=== PATIENT | female | born 2000 | race Hispanic/Latino ===

== ENCOUNTER 2025-01-15 21:46 | Emergency (ER) | payer BC ==
[~2025-01-15] VITALS: Ht 160 cm; Wt 68.0 kg
--- NOTE | 2025-01-15 21:54 | NUR ---
UA CUP PROVIDED
--- NOTE | 2025-01-15 21:59 | ERN ---
ED Note History of Present Illness Stated Complaint: VAGINAL BLEEDING , 9 WEEKS, Sep MENS Chief Complaint: Vaginal Bleeding Time Seen by MD: 21:57 Dictation: This is a 24-year-old female who presented to the emergency room with complaints of vaginal bleeding in . She stated that she started bleeding in the past 2 days small amounts no large clots. She did not have to change multiple pads. No fever chills or rigors. Vaginal discharge. No frequency burning micturition. No pelvic pain cramping or lower back pain. She was seen at [facility] and her was confirmed and she also stated that an ultrasound was done and she was given pictures of the sac with heart rate. Temperature 99 pulse 62 respirations 18 blood pressure 121/72 with a pulse oximetry of 98% on room air Allergies: Coded Allergies: amoxicillin (Unverified Allergy, Unknown, 01/15/25) Past Medical History Past Medical History: No Pertinent History Surgical History: None Family History: Negative Social History: Negative LMP: Oct 17, 2024 : 1 RN Note Reviewed/Agreed w/PFSH: Yes Review of System Dictation Constitutional: Negative for fever,chills, and weight loss Eyes: Negative for injury, pain,redness, and discharge ENT: Negative for injury,pain or swelling Cardiovascular: Negative for chest pain, palpitations, and edema Respiratory: Negative for shortness of breath, cough, and wheezing, Abdomen/GI: Negative for abdominal pain, nausea, vomiting, diarrhea, and constipation Back: Negative for injury and pain : Negative for injury, bleeding and discharge vaginal bleeding MS/Extremity: Negative for injury and deformity Skin: Negative for rash, and discoloration Neuro: Negative for headache, weakness, numbness, tingling, and seizure Psych: Negative for suicide ideation, homicidal ideation, and hallucinations Initial Vital Sign VS Vital Signs Date Time Temp Pulse Resp B/P (MAP) Pulse Ox O2 Delivery O2 Flow Rate FiO2 01/15/25 21:47 99.0 62 18 121/72 100 Room Air Physical Exam Dictation General: awake, alert, NAD Head/Face: Normocephalic, atraumatic Eyes: PERRL, EOMI, vision at baseline ENT: oral cavity clear, TMs clear, no signs of infection Neck: Trachea midline, supple, no nuchal rigidity Cardiovascular: RRR, normal S1/S2, No MRGs, no JVD Respiratory: CTAB, no respiratory distress, No rales or wheezes Abdomen: Soft, non-tender, non-distended, normal bowel sounds, no guarding or rebound. Skin: Warm, dry, normal turgor, no rash MS/Extremity: Pulses equal, no cyanosis, neurovascular intact, FROM Neuro: COAx4, GCS 15, strength 5/5, CN 2-12 intact, normal cerebellar exam, normal gait, Psych: Normal behavior, mood, and affect normal Extremities-trace edema without any palpable cords, Homans sign is negative Results (Laboratory/Radiology) Laboratory/Radiology Laboratory Tests Test 01/15/25 23:33 01/15/25 23:40 White Blood Count 8.4 K/uL (4.8-10.8) Red Blood Count 3.56 MIL/uL (4.00-5.50) L Hemoglobin 10.7 g/dL (12.0-16.0) L Hematocrit 32.4 % (36-48) L Mean Corpuscular Volume 91.0 fL (79-99) Mean Corpuscular Hemoglobin 30.1 pg (27.0-33.0) Mean Corpuscular Hemoglobin Concent 33.0 g/dL (32.0-36.0) Red Cell Distribution Width 12.7 % (11.0-15.5) Platelet Count 203 K/uL (130-400) Mean Platelet Volume 11.0 fL (7.5-10.5) H Immature Granulocyte % (Auto) 0.4 % (0-1) Neutrophils (%) (Auto) 63.5 % (40.0-77.0) Lymphocytes (%) (Auto) 28.9 % (21.0-51.0) Monocytes (%) (Auto) 5.7 % (3.0-13.0) Eosinophils (%) (Auto) 1.1 % (0.0-8.0) Basophils (%) (Auto) 0.4 % (0.0-5.0) Neutrophils # (Auto) 5.3 K/uL (1.8-7.7) Lymphocytes # (Auto) 2.4 K/uL (1.0-4.8) Monocytes # (Auto) 0.5 K/uL (0.1-1.0) Eosinophils # (Auto) 0.09 K/uL (0.00-0.70) Basophils # (Auto) 0.03 K/uL (0.00-0.20) Absolute Immature Granulocyte (auto 0.03 K/uL (0-1) Nucleated Red Blood Cells 0.0 % (0.0-0.19) Sodium Level 134 mmol/L (136-145) L Potassium Level 4.3 mmol/L (3.5-5.1) Chloride Level 100 mmol/L (101-111) L Carbon Dioxide Level 29 mmol/L (21-32) Blood Urea Nitrogen 11 mg/dL (7-18) Creatinine 0.6 mg/dL (0.5-1.0) Glomerular Filtration Rate Calc 129 mL/min (>90) Random Glucose 95 mg/dL (70-105) Total Calcium 8.8 mg/dL (8.5-10.1) Serum Test, Qualitative POSITIVE (NEGATIVE) H Urine Color COLORLESS (YELLOW) Urine Appearance CLEAR (CLEAR) Urine pH 6.5 (5.0-8.0) Urine Specific Antimony 1.007 (1.001-1.031) Urine Protein NEGATIVE mg/dL (NEGATIVE) Urine Glucose (UA) NEGATIVE mg/dL (NEGATIVE) Urine Ketones NEGATIVE mg/dL (NEGATIVE) Urine Occult Blood MODERATE (NEGATIVE) H Urine Nitrate NEGATIVE (NEGATIVE) Urine Bilirubin NEGATIVE mg/dL (NEGATIVE) Urine Urobilinogen 0.2 mg/dL (0.2-1.0) Urine Leukocyte Esterase NEGATIVE Naila/uL Urine RBC 2-5 /HPF (0-1) H Urine WBC 6-10 /HPF (0-1) H Urine Squamous Epithelial Cells RARE /HPF (0-2) Urine Bacteria None /HPF (None Seen) Labs Reviewed?: Yes ED Course ED Course Orders Procedure Category Date Status Time Cbc With Differential LAB 01/15/25 Complete 21:57 Testing, LAB 01/15/25 Complete Serum Hcg 21:57 Us Ob Transvaginal US 01/15/25 Taken 21:57 Basic Metabolic Panel LAB 01/15/25 Complete 21:57 Urinalysis Profile LAB 01/15/25 Complete 23:40 Hcg,Quantitative LAB 01/15/25 In Process 23:55 Culture Urine MARIUSZ 01/15/25 Logged 23:58 Vital Signs Date Time Temp Pulse Resp B/P (MAP) Pulse Ox O2 Delivery O2 Flow Rate FiO2 01/15/25 21:47 99.0 62 18 121/72 100 Room Air We will perform diagnostic labs, advanced imaging and administer medications according to the patient's complaint. Once the results are available, will review and personally interpreted the labs to rule out any acute life-thr eatening emergency the trach require immediate intervention and treatment. I will then re-evaluate the patient after treatment and diagnostic exams have return to determine whether the patient requires any further testing, can safely be discharged home or need further admission to hospital for additional treatment and evaluation. 12:30 a.m. labs CBC showed a white count of 8.4 hemoglobin of 10.7 platelets 203. BNP 7 is within normal limits. Urinalysis is unremarkable urine test is positive. Transvaginal ultrasound preliminary- heart rate was not identified there was a yolk sac that was seen and the ultrasound age was only 6 weeks +/-3 days. Based on her LMP sac should be 12 weeks and 6 days I updated the patient and spouse on preliminary ultrasound results and lab results and I recommended that she should follow up with the her OB to reconfirm if any loss of the fetus.. Medical Decision Making MDM MDM: Differential diagnosis: Implantation bleeding, subchorionic hemorrhage, threat of Rationale: Tests considered and ordered secondary to shared decision making include: Previous outside records reviewed: Old ER visits. Risk of complication and/or morbidity or mortality of patient management: None Medications-Per medication reconciliation Need for hospitalization: Patient does not meet criteria for hospitalization. Need for emergency major/minor surgery: No There are no social concerns with this patient. Prescription drug management Prescriptions will include symptomatic care Patient's prior external medical records from other ER visits were reviewed by me as indicated. Prior testing and results from previous visits were reviewed. Prior tests were taken into account with medical decision making and resource utilization, independent historian/historians were used to obtain complete medical history. I independently interpreted the test that were performed, results were reviewed by me and considered findings on radiology if ordered. Medical management and examination interpretation discussions were had by me with other qualified healthcare professionals as indicated for the patient's care. Problem List Problem List: (1) Vaginal bleeding in (2) Threatened in first trimester DX & DISP Disposition: Discharge Departure Impression: Primary Impression: Vaginal bleeding in Additional Impression: Threatened in first trimester Condition: Stable Additional Instructions: Patient and the caregiver have been informed of all the diagnostic tests and the imaging conducted during the today's visit to the emergency room and has verbalized understanding of the results I have personally reviewed and interpreted all diagnostic exams performed here in the ER today as well as the vital signs documented by the nursing staff. The patient is now being discharged to home and should follow up with the primary care physician or the specialist as directed by the ER staff. Follow-up with primary care provider in 1 to 2 days. Take medications as directed here in the emergency room. Okay to continue home medications unless otherwise discussed during your visit in the emergency room today. Return to your nearest emergency room if symptoms worsen or if there is no improvement. Call 911 if you need immediate assistance. Take Tylenol or Motrin [id number] as needed and if no contraindications are present. Increase oral hydration. A wound culture or urine culture was ordered here in the emergency room department please follow-up with primary care provider and advise them to get repeat ports from our facility. If you had any Inocencio wrap/splints that were applied here, please do not remove them until you see your primary care or specialty. ZA CORRALES MD Jan 15, 2025 21:59
[2025-01-15 23:41] LABS: BASOPHILS # (AUTO) 0.03 K/uL (0.00-0.20); BASOPHILS % (AUTO) 0.4 % (0.0-5.0); EOSINOPHILS # (AUTO) 0.09 K/uL (0.00-0.70); EOSINOPHILS % (AUTO) 1.1 % (0.0-8.0); HEMATOCRIT 32.4 % (36-48); IMMATURE GRANULOCYTE ABSOLUTE 0.03 K/uL (0-1); LYMPHOCYTES # (AUTO) 2.4 K/uL (1.0-4.8); LYMPHOCYTES % (AUTO) 28.9 % (21.0-51.0); MEAN CORPUSCULAR HEMOGLOBIN 30.1 pg (27.0-33.0); MONOCYTES # (AUTO) 0.5 K/uL (0.1-1.0); MONOCYTES % (AUTO) 5.7 % (3.0-13.0); NEUTROPHILS # (AUTO) 5.3 K/uL (1.8-7.7); NEUTROPHILS % (AUTO) 63.5 % (40.0-77.0); PLATELET COUNT (AUTO) 203 K/uL (130-400); RED BLOOD CELL COUNT(AUTO) 3.56 MIL/uL (4.00-5.50); RED CELL DISTRIBUTION WIDTH 12.7 % (11.0-15.5); WHITE BLOOD COUNT (AUTO) 8.4 K/uL (4.8-10.8)
[2025-01-15 23:50] LABS: CREATININE 0.6 mg/dL (0.5-1.0); POTASSIUM 4.3 mmol/L (3.5-5.1)
[2025-01-15 23:53] LABS: APPEARANCE,URINE CLEAR (CLEAR); BILIRUBIN,URINE NEGATIVE (NEGATIVE); COLOR,URINE COLORLESS (YELLOW); GLUCOSE, URINE (UA) NEGATIVE (NEGATIVE); KETONES,URINE NEGATIVE (NEGATIVE); LEUKOCYTE ESTERASE ,URINE NEGATIVE Leu/uL (NEGATIVE); NITRATE,URINE NEGATIVE (NEGATIVE); OCCULT BLOOD,URINE MODERATE (NEGATIVE); PH,URINE 6.5 (5.0-8.0); PROTEIN,URINE NEGATIVE (NEGATIVE); UROBILINOGEN,URINE 0.2 mg/dL (0.2-1.0)
[2025-01-15 23:55] LABS: ADD UA MICROSCOPIC YES
[2025-01-15 23:56] LABS: SQUAMOUS EPITHELIAL CELL,UR RARE /HPF (0-2)
[2025-01-16 00:50] VITALS: BP 120/75; PULSE 65; RESP 18; TEMP 98.6; O2SAT 100
--- NOTE | 2025-01-16 10:16 | HMCIMG ---
TRANSVAGINAL ULTRASOUND ULTRASOUND ABD VASCULAR LIMITED INDICATION: Vaginal bleeding COMPARISONS: None TECHNIQUE: Transvaginal real-time sonographic images were acquired earlier, and subsequently made available for review. FINDINGS: Transvaginal imaging was performed to better delineate pelvic anatomy. The uterus measures 7.1 x 4.6 x 4.1 cm. The uterus is normal in echotexture and contour. Gestational sac measures 1.3 cm. Single intrauterine gestation corresponding to 6 weeks 1 days +/- 3 days based on crown-rump length of 0.43 cm. heart rate was not well-demonstrated. The right ovary measures 3.7 x 2.2 x 4.0 cm. The right ovary is normal in size, shape and echogenicity. No right adnexal masses demonstrated. Color Doppler flow is normal throughout the right ovary. Spectral Doppler analysis demonstrates a normal waveform pattern. The left ovary measures 3.0 x 1.8 x 2.1 cm. The left ovary is normal in size, shape and echogenicity. No left adnexal masses demonstrated. Color Doppler flow is normal throughout the left ovary. Spectral Doppler analysis demonstrates a normal waveform pattern. No free pelvic fluid demonstrated. IMPRESSION: Single intrauterine gestation corresponding to 6 weeks 1 days +/- 3 days based on crown-rump length, but heart rate was not well-demonstrated . Correlation with beta-hCG levels and short-term follow-up sonographic imaging is recommended.
== END 2025-01-16 00:52 | disposition home or self-care (01) ==
LOC: EDH 21:46
DX: O20.0 Threatened abortion (principal); O26.891 Other specified pregnancy related conditions, first trimester; R10.2 Pelvic and perineal pain; Z3A.09 9 weeks gestation of pregnancy; Z88.0 Allergy status to penicillin
CPT/HCPCS: 36415; 76817; 80048; 81001; 84702; 84703; 85025; 87086; 99284